=== PATIENT | male | born 1940 | race Caucasian/White ===

== ENCOUNTER 2017-02-05 18:24 | Emergency (ER) | payer MEDICARE, OTHER ==
[2017-02-05 22:53] LABS: HEMOGLOBIN 12.4 gm/dl (14.0-17.5); RED BLOOD COUNT 3.99 M/UL (4.20-5.50); WHITE BLOOD COUNT 6.5 K/UL (4.5-11.0)
== END 2017-02-06 01:10 | disposition home or self-care (01) ==
LOC: ER1 18:24
PROVIDERS: Emergency Medicine
DX: R11.2 Nausea with vomiting, unspecified (principal); R19.7 Diarrhea, unspecified; R10.9 Unspecified abdominal pain
CPT/HCPCS: 36415; 80053; 82550; 82553; 83605; 83874; 84484; 85025; 85610; 85730; 93005; 96360; 99284

== ENCOUNTER 2020-12-20 20:10 | Emergency (ER) | payer OTHER, MEDICARE ==
[~2020-12-20 20:10] MED LIST: CLEOCIN HCL300 MG PO
[2020-12-20] MEDS ORDERED: HYDROCODONE-AC1 EACH PO (21:30)
[2020-12-20] MEDS ORDERED: HYDROCODON-ACE1 EAC4 PO ×3 (21:31→21:40)
== END 2020-12-20 21:52 | disposition home or self-care (01) ==
LOC: ER1 20:10
DX: S39.012A Strain of muscle, fascia and tendon of lower back, initial encounter (principal); I25.10 Atherosclerotic heart disease of native coronary artery without angina pectoris; E11.9 Type 2 diabetes mellitus without complications; I11.9 Hypertensive heart disease without heart failure; X50.9XXA Other and unspecified overexertion or strenuous movements or postures, initial encounter; Y92.009 Unspecified place in unspecified non-institutional (private) residence as the place of occurrence of the external cause
CPT/HCPCS: 72100; 99283

== ENCOUNTER → 2021-12-06 | Outpatient (CLI) | payer MEDICARE ==
[~2021-12-06] MED LIST changes: +HYDROCODON-ACE1 EAC4 PO; +HYDROCODONE-AC1 EACH PO
== END ==
LOC: ECHO 09:30
PROVIDERS: Radiology Diagnostic Radiology
DX: I25.10 Atherosclerotic heart disease of native coronary artery without angina pectoris (principal); I10 Essential (primary) hypertension; E11.9 Type 2 diabetes mellitus without complications
CPT/HCPCS: ECHO; 36415; 80053; 93306